=== PATIENT | female | born 1965 | race Caucasian/White ===

== ENCOUNTER 2016-12-06 16:34 | Observation (INO) | payer OTHER ==
[2016-12-06 17:14] LABS: BILIRUBIN,URINE NEGATIVE (NEGATIVE)
[2016-12-06 17:19] LABS: UA w/ MICROSCOPIC CHARGE YES
[2016-12-06] MEDS ORDERED: ONDANSETRON 4 MG/2 ML VIAL IVP STA (17:33)
[2016-12-06] MEDS ORDERED: HYDROmorphone 1 MG/ML SYRINGE IVP STA (17:33)
[2016-12-06] MEDS ORDERED: SODIUM CHLORIDE 0.9% 1,000 ML IV ONE (17:33)
[2016-12-06] MEDS ORDERED: HYDROmorphone 1 MG/ML SYRINGE ONE (17:35)
[2016-12-06] MEDS ORDERED: ONDANSETRON 4 MG/2 ML VIAL ONE (17:35)
[2016-12-06 17:36] LABS: BASOPHILS # (AUTO) 0.1 10^3/uL (0.0-0.1); BASOPHILS % (AUTO) 0.5 %; EOSINOPHILS % (AUTO) 0.2 %; HCT - HEMATOCRIT 37.7 % (37.0-47.0); HGB - HEMOGLOBIN 12.3 g/dL (12.0-16.0); LYMPHOCYTES # (AUTO) 1.7 10^3/uL (1.5-3.5); LYMPHOCYTES % (AUTO) 14.4 %; MEAN CORPUSCULAR HEMOGLOBIN 30.2 pg (27.0-31.0); MEAN CORPUSCULAR HGB CONC 32.6 g/dL (32.0-36.0); MEAN CORPUSCULAR VOLUME 92.6 fL (81.0-99.0); MEAN PLATELET VOLUME 10.1 fL (7.9-10.8); MONOCYTES # (AUTO) 0.6 10^3/uL (0.0-1.0); MONOCYTES % (AUTO) 5.5 %; NEUTROPHILS # (AUTO) 9.1 10^3/uL (1.5-6.6); NEUTROPHILS % (AUTO) 79.4 %; RED BLOOD COUNT 4.08 10^6/uL (4.20-5.40); RED CELL DISTRIBUTION WIDTH 12.7 % (12.0-15.0); UNCORRECTED WHITE BLOOD COUNT 11.5 x10^3/uL; WHITE BLOOD COUNT 11.5 x10^3/uL (4.8-10.8)
[2016-12-06 17:37] LABS: UR CULTURE IF IND NOT INDICATED; WBC,URINE 0-3 /HPF (0-5)
--- NOTE | 2016-12-06 17:41 | ED Physician Documentation ---
PD HPI ABD PAIN - Stated complaint Stated Complaint: ABD PX - Chief complaint Chief Complaint: Abd Pain - Additional information Additional information: 51-year-old female with past medical history of high cholesterol who is here with generalized abdominal pain for the last 3 days which got progressively worse today, is worse in the right lower quadrant, is associated with nausea but no vomiting. Pain is exacerbated by eating and not relieved by anything. It is also exacerbated by walking and certain movements. She denies diarrhea but has had some constipation. Pain is primarily a dull ache but occasionally becomes sharp in the right side. She denies dysuria and hematuria Review of Systems Ten Systems: 10 systems reviewed and negative Constitutional: denies: Fever, Chills Cardiac: denies: Chest pain / pressure Respiratory: denies: Dyspnea GI: reports: Abdominal Pain. denies: Nausea, Vomiting PD PAST MEDICAL HISTORY - Present Medications Home Medications: Ambulatory Orders Medication Instructions Recorded Confirmed Sertraline [Zoloft] 50 mg PO DAILY 12/06/16 12/06/16 - Allergies Allergies/Adverse Reactions: Allergies Allergy/AdvReac Type Severity Reaction Status Date / Time No Known Drug Allergies Allergy Verified 12/06/16 16:41 PD ED PE NORMAL - Vitals Vital signs reviewed: Yes - General General: Alert and oriented X 3, No acute distress - HEENT HEENT: PERRL - Neck Neck: Supple, no meningeal sign - Cardiac Cardiac: RRR, No murmur - Respiratory Respiratory: Clear bilaterally - Abdomen Abdomen: Normal bowel sounds, Soft, Non distended, Other (Right lower quadrant tenderness to palpation with rebound but no guarding) - Derm Derm: Warm and dry - Extremities Extremities: No deformity - Neuro Neuro: Alert and oriented X 3 - Psych Psych: Normal mood, Normal affect Results - Vitals Vitals: Vital Signs - 24 hr 12/06/16 12/06/16 12/06/16 16:37 18:21 20:10 Temperature 36.7 C 36.7 C Heart Rate 86 72 83 Respiratory 16 15 18 Rate Blood Pressure 119/74 115/57 L 115/56 L O2 Saturation 95 97 97 Oxygen O2 Source Room air - Labs Labs: Laboratory Tests 12/06/16 12/06/16 12/06/16 16:55 17:20 17:20 WBC 11.5 H RBC 4.08 L Hgb 12.3 Hct 37.7 MCV 92.6 MCH 30.2 MCHC 32.6 RDW 12.7 Plt Count 215 MPV 10.1 Neut # 9.1 H Lymph # 1.7 Haralson # 0.6 Eos # 0.0 Baso # 0.1 Absolute Nucleated RBC 0.00 Nucleated RBCs 0.0 Sodium 137 Potassium 3.7 Chloride 103 Carbon Dioxide 25 Anion Gap 9.0 BUN 15 Creatinine 0.8 Estimated GFR (MDRD) 75 L Glucose 97 Lactic Acid Calcium 8.7 Total Bilirubin 0.9 AST 16 ALT 14 Alkaline Phosphatase 47 Total Protein 6.7 Albumin 3.8 Globulin 2.9 Albumin/Globulin Ratio 1.3 Lipase 22 Urine Color YELLOW Urine Clarity CLEAR Urine pH 6.0 Ur Specific Cashion 1.010 Urine Protein NEGATIVE Urine Glucose (UA) NEGATIVE Urine Ketones 15 H Urine Occult Blood LARGE H Urine Nitrite NEGATIVE Urine Bilirubin NEGATIVE Urine Urobilinogen 0.2 (NORMAL) Ur Leukocyte Esterase NEGATIVE Urine RBC 0-5 Urine WBC 0-3 Ur Squamous Epith Cells FEW Squamous Urine Bacteria Rare Ur Microscopic Review INDICATED Urine Culture Comments NOT INDICATED 12/06/16 18:00 WBC RBC Hgb Hct MCV MCH MCHC RDW Plt Count MPV Neut # Lymph # Haralson # Eos # Baso # Absolute Nucleated RBC Nucleated RBCs Sodium Potassium Chloride Carbon Dioxide Anion Gap BUN Creatinine Estimated GFR (MDRD) Glucose Lactic Acid 0.6 Calcium Total Bilirubin AST ALT Alkaline Phosphatase Total Protein Albumin Globulin Albumin/Globulin Ratio Lipase Urine Color Urine Clarity Urine pH Ur Specific Cashion Urine Protein Urine Glucose (UA) Urine Ketones Urine Occult Blood Urine Nitrite Urine Bilirubin Urine Urobilinogen Ur Leukocyte Esterase Urine RBC Urine WBC Ur Squamous Epith Cells Urine Bacteria Ur Microscopic Review Urine Culture Comments - Rads (name of study) ct abd/pelvis with Radiology: EMP read contemporaneously, See rad report (IMPRESSION: 1. Acute appendicitis with irregularity at the tip of the appendix as well as likely adjacent extraluminal air consistent with early perforated appendicitis. Inflammation and trace free fluid without evidence of abscess. 2. Multiple liver lesions with a notable 3.3 cm somewhat amorphous hypodense area within the right lobe within segment 7. Differential diagnosis includes geographic focal fat, hemangioma or other infiltrative masses both benign or malignant. Considering its size, follow-up outpatient liver MRI suggested for further characterization. ) PD MEDICAL DECISION MAKING - ED course Complexity details: reviewed results, re-evaluated patient, considered differential, d/w patient, d/w health management consultant ED course: 51-year-old female no past medical history here with right lower quadrant pain. Differential diagnosis includes but is not limited to appendicitis versus urinary tract infection versus kidney stone versus pancreatitis. CBC is remarkable for leukocytosis. CMP is normal. CT abdomen and pelvis shows possibly perfect appendicitis. I discussed the case with surgeon Dr. Urena who is admitted the patient to the hospital for appendectomy tomorrow. Patient is aware and amenable to plan. This document was made in part using voice recognition software. While efforts are made to proofread this document, sound alike and grammatical errors may occur. Departure - Departure Disposition: ED Place in Observation Clinical Impression: Appendicitis Qualifiers: Appendicitis type: acute appendicitis Acute appendicitis type: with localized peritonitis Qualified Code(s): K35.3 - Acute appendicitis with localized peritonitis Condition: Fair
[2016-12-06 17:49] LABS: ALBUMIN/GLOBULIN RATIO 1.3 (1.0-2.2); BILIRUBIN,TOTAL 0.9 mg/dL (0.2-1.0); CALCIUM 8.7 mg/dL (8.5-10.3); CREATININE 0.8 mg/dL (0.4-1.0); POTASSIUM 3.7 mmol/L (3.5-5.0); TOTAL PROTEIN 6.7 g/dL (6.7-8.2)
[2016-12-06] MEDS ORDERED: IOPAMIDOL-300 100 ML VIAL IVP ONE (18:53)
--- NOTE | 2016-12-06 19:57 | CT Report ---
EXAM: CT ABDOMEN AND PELVIS EXAM DATE: 12/06/2016 06:58 PM. CLINICAL HISTORY: Right lower quadrant pain with rebound. COMPARISONS: None. TECHNIQUE: Routine helical CT imaging was performed through the abdomen and pelvis. IV contrast: 100 cc Isovue-300. Enteric contrast: No. Reconstructions: Coronal and sagittal. In accordance with CT protocol optimization, one or more of the following dose reduction techniques w ere utilized for this exam: automated exposure control, adjustment of mA and/or KV based on patient s ize, or use of iterative reconstructive technique. FINDINGS: Lung Bases: Unremarkable. Liver: Liver is normal in contour with multiple hypodense lesions within the liver. One of these lesi ons measures 11 mm in the right lobe of the liver and 20 Hounsfield units consistent with an hepatic cyst. Numerous other lesions are less than 1 cm and are technically indeterminate. However, there is a more amorphous geographic 3.3 cm hypodense area within the right lobe of the liver which is also in determinate. Gallbladder/Bile Ducts: Unremarkable. Spleen: Normal. Pancreas: Normal. Adrenal Glands: Normal. Kidneys: Symmetric renal enhancement without hydronephrosis. Hypodense subcentimeter lesion within th e left kidney which is too small for characterization. Peritoneal Cavity/Bowel: The stomach is decompressed and unremarkable. There are no dilated loops of large or small intestine with a large amount of stool within the colon. Within the right lower quadra nt inferior to the cecal tip there is prominent inflammation with a thickened appendix measuring 10 m m with irregular air at the tip of the appendix. The wall also appears indistinct at this level with some adjacent trace free fluid. No discrete abscess. Pelvic Organs: The bladder is unremarkable and the uterus is within normal limits. There is a left ov marcus cyst measuring 3.2 cm and right ovarian cyst measuring 2.3 cm. Trace free fluid is present with in the pelvic cul-de-sac. Vasculature: Mild atherosclerosis without abdominal aortic aneurysm. Bones: Old-appearing L2 compression fracture. Other: Fat-containing paraumbilical hernia. IMPRESSION: 1. Acute appendicitis with irregularity at the tip of the appendix as well as likely adjacent extralu stalin air consistent with early perforated appendicitis. Inflammation and trace free fluid without ev idence of abscess. 2. Multiple liver lesions with a notable 3.3 cm somewhat amorphous hypodense area within the right lo be within segment 7. Differential diagnosis includes geographic focal fat, hemangioma or other infilt rative masses both benign or malignant. Considering its size, follow-up outpatient liver MRI suggeste d for further characterization. [facility] Referring Provider Line: [phone] SITE ID: [id number]
[2016-12-06] MEDS ORDERED: AMPICILLIN/SULBACTAM 3 GM in SODIUM CHLORIDE 0.9% MINIBAG 100 ML IV STA (20:07)
[2016-12-06] MEDS ORDERED: SODIUM CHLORIDE FLUSH 0.9% 10 ML SYRINGE IVP PRN (21:01)
[2016-12-06] MEDS ORDERED: LORazepam 2 MG/ML SYRINGE IVP PRN (21:06)
[2016-12-06] MEDS ORDERED: AMPICILLIN/SULBACTAM 3 GM in SODIUM CHLORIDE 0.9% MINIBAG 100 ML IV SCH (22:00)
--- NOTE | 2016-12-06 22:31 | PROVIDER PROGRESS NOTE ---
Subjective - General Admit Date: 12/06/16 - Other Other Information/Narrative: see dictated H&P Objective - Patient Data Vital Signs: Vital Signs x48h Temp Pulse Resp BP Pulse Ox 12/06/16 21:50 37.3 C 83 16 99/55 L 97 - Lab Results Lab Results: 12/06/16 17:20 12/06/16 17:20 - Physical Exam Comments/Other: see dictated H&P Impression/Plan - Problem List Problem List: acute appendicitis Admit to [facility] NPO IV fluids IV Unasyn Laparoscopic appendectomy in AM see dictated H&P
[2016-12-06] MEDS: LACTATED RINGERS 1,000 ML IV SCH (22:51)
[2016-12-06] MEDS: SODIUM CHLORIDE FLUSH 0.9% 10 ML SYRINGE IVP SCH (22:51)
[2016-12-07] MEDS: ONDANSETRON 4 MG/2 ML VIAL IVP PRN ×2 (01:04→05:41)
[2016-12-07] MEDS ORDERED: AMPICILLIN/SULBACTAM 3 GM in SODIUM CHLORIDE 0.9% MINIBAG 100 ML IV SCH (02:00)
[2016-12-07] MEDS: SODIUM CHLORIDE FLUSH 0.9% 10 ML SYRINGE IVP SCH ×3 (05:07→21:55)
[2016-12-07] MEDS: LACTATED RINGERS 1,000 ML IV SCH (05:43)
[2016-12-07] MEDS: HYDROmorphone 1 MG/ML SYRINGE IVP PRN ×4 (06:40→15:55)
[2016-12-07] MEDS ORDERED: LACTATED RINGERS 1,000 ML IV ONE ×2 (09:20→10:08)
[2016-12-07] MEDS ORDERED: ONDANSETRON 4 MG/2 ML VIAL IVP ONE (09:45)
[2016-12-07] MEDS ORDERED: ePHEDrine 50 MG/ML VIAL IVP ONE (09:45)
[2016-12-07] MEDS ORDERED: SUCCINYLCHOLINE 200 MG/10 ML VIAL IVP ONE (09:45)
[2016-12-07] MEDS ORDERED: DEXAMETHASONE 4 MG/ML VIAL IVP ONE (09:45)
[2016-12-07] MEDS ORDERED: NEOSTIGMINE 1 MG/1 ML 10 ML MDV IVP ONE (09:45)
[2016-12-07] MEDS ORDERED: LIDOCAINE-PF 2% 10 ML AMP SUBQ ONE (09:45)
[2016-12-07] MEDS ORDERED: PROPOFOL 200 MG/20 ML VIAL IVP ONE (09:45)
[2016-12-07] MEDS ORDERED: GLYCOPYRROLATE 1 MG/5 ML VIAL IVP ONE (09:45)
[2016-12-07] MEDS ORDERED: fentaNYL 100 MCG/2 ML VIAL IVP ONE (09:45)
[2016-12-07] MEDS ORDERED: ROCURONIUM 50 MG/5 ML VIAL IVP ONE (09:45)
[2016-12-07] MEDS ORDERED: ACETAMINOPHEN 1,000 MG/100 ML VIAL IV ONE (09:45)
[2016-12-07] MEDS ORDERED: MIDAZOLAM 2 MG/2 ML VIAL IVP ONE (09:45)
[2016-12-07] MEDS ORDERED: KETOROLAC 30 MG/ML VIAL IVP ONE (09:45)
[2016-12-07] MEDS ORDERED: BUPIVACAINE 0.5% PF 30 ML VIAL SUBQ ONE ×2 (10:08)
[2016-12-07] MEDS ORDERED: LIDOCAINE 1%-EPI 1:100000 20 ML MDV SUBQ ONE ×2 (10:09)
--- NOTE | 2016-12-07 12:00 | PROVIDER PROGRESS NOTE ---
Surgery Post-Op - General Admit Date: 12/06/16 Procedure Date: 12/07/16 Pre-Op Diagnosis: acute appendicitis Operative Procedure: laparoscopic appendectomy Post-Op Diagnosis: perforated appendicitis - Procedure Note Anesthesia Technique: Primary Surgeon: Romel Pathology: appendix Estimated Blood Loss (in cc): 25 Complications: none - Other Other Information/Narrative: perforation and necrosis of the distal portion of the appendix which was covered by mesenteric fat and localized, irrigated with 2000ml saline, no drain placed return to [facility], advance diet, two more doses of IV Unasyn and then start po Augmentin which the patient will be discharged on The patient cannot be discharged until she is taking liquids well and able to tolerate the oral antibiotic JOB ID# [id number] Impression/Plan - Condition Condition: Fair
[2016-12-07] MEDS ORDERED: fentaNYL 100 MCG/2 ML VIAL ONE (12:05)
[2016-12-07] MEDS ORDERED: LORazepam 2 MG/ML SYRINGE IVP PRN (12:17)
[2016-12-07] MEDS ORDERED: PROMETHAZINE 25 MG SUPP PR PRN (12:17)
[2016-12-07] MEDS ORDERED: SODIUM CHLORIDE FLUSH 0.9% 10 ML SYRINGE IVP PRN (12:17)
[2016-12-07] MEDS ORDERED: BENZOCAINE SPRAY MM PRN (12:17)
[2016-12-07] MEDS ORDERED: ACETAMINOPHEN 1,000 MG/100 ML 100 ML IV PRN (12:17)
[2016-12-07] MEDS ORDERED: KETOROLAC 30 MG/ML VIAL IVP PRN (12:17)
[2016-12-07] MEDS ORDERED: PROCHLORPERAZINE 10 MG/2 ML VIAL IVP PRN (12:17)
[2016-12-07] MEDS: D5.45NS W/20 MEQ KCL 1,000 ML IV SCH (13:34)
[2016-12-07] MEDS: AMPICILLIN/SULBACTAM 3 GM in SODIUM CHLORIDE 0.9% MINIBAG 100 ML IV SCH ×2 (15:51→21:54)
[2016-12-07] MEDS: oxyCOD/ACETAMIN 5 MG/325 MG TABLET PO PRN ×2 (17:47→21:53)
--- NOTE | 2016-12-07 18:20 | PROVIDER PROGRESS NOTE ---
Subjective - General Admit Date: 12/06/16 Procedure Date: 12/07/16 Post Op Days: 0 Procedure Performed: laparoscopic appendectomy - Review of Systems Wound/Incisions: positive: Dressing dry and intact, No drainage. negative: Erythema Gastrointestinal: positive: Nausea, Vomiting, Abdominal pain (appropriate for post op) Genitourinary: positive: Other (carrasco catheter from the surgery was still in place and will be removed now) Objective - Patient Data Vital Signs: Vital Signs x48h Temp Pulse Resp BP Pulse Ox 12/07/16 16:47 36.8 C 71 16 94/69 93 12/07/16 14:13 36.5 C 69 12 103/67 92 12/07/16 13:30 36.5 C 71 12 101/66 94 12/07/16 13:05 36.7 C 72 14 99/63 95 12/07/16 12:50 97 12/07/16 12:45 96 12/07/16 12:30 95 12/07/16 12:15 96 12/07/16 12:10 95 12/07/16 12:05 96 12/07/16 12:00 96 12/07/16 11:56 100 Weight: Weight 12/05/16 12/06/16 12/07/16 23:59 23:59 23:59 Weight (kg) 99 kg Intake & Output: Intake and Output Totals x24h 12/05/16 12/06/16 12/07/16 23:59 23:59 23:59 Intake Total 948 Output Total 15 Balance 933 - Lab Results Lab Results: 12/06/16 17:20 12/06/16 17:20 - Current Medications Current Medications: Current Medications Generic Name Dose Route Start Last Admin Trade Name Freq PRN Reason Stop Dose Admin Hydromorphone HCl 0.5 mg 12/07/16 12:17 12/07/16 15:55 Dilaudid Inj IVP 0.5 mg Q2HR PRN Administration PAIN Potassium Chloride/Dextrose/Sod Cl 1,000 mls @ 100 mls/hr 12/07/16 13:00 13:34 D5.45ns W/20 Meq Kcl IV 100 mls/hr .Q10H BETITO Administration Ampicillin Sodium/Sulbactam 100 mls @ 200 mls/hr 12/07/16 14:00 12/07/16 15:51 Sodium 3 gm/ Sodium Chloride IV 12/07/16 20:29 200 mls/hr Q6H BETITO Administration Ketorolac Tromethamine 30 mg 12/07/16 12:17 12/07/16 13:35 Toradol Inj IVP 12/12/16 12:16 30 mg Q6H PRN Administration PAIN Oxycodone/Acetaminophen 2 tab 12/07/16 12:17 12/07/16 17:47 Percocet 5 Mg/325 Mg PO 2 tab Q4HR PRN Administration PAIN Prochlorperazine Edisylate 10 mg 12/07/16 12:17 12/07/16 17:53 Compazine Inj IVP 10 mg Q4HR PRN Administration Nausea / Vomiting Sodium Chloride 10 ml 12/07/16 14:00 12/07/16 13:35 Normal Saline Flush 0.9% IVP 10 ml Q8HR BETITO Administration - Physical Exam Wound/Incisions: positive: Dressing dry and intact, No drainage. negative: Drainage, Erythema General Appearance: positive: No acute distress, Alert Abdomen: positive: Other (dressing dry and intact with no drainage and appropriate tenderness) Comments/Other: carrasco catheter was still in place Impression/Plan - Problem List Problem List: remove the carrasco Get the patient out of bed use the incentive spirometer stop the IV Unasyn after the next dose and start po Augmentin Will plan for discharge in the morning if the patient is no longer nauseated and is taking po and able to urinate
--- NOTE | 2016-12-07 18:30 | Discharge Plan ---
Discharge Plan Disposition: 01 Home, Self Care Condition: Stable Prescriptions: oxyCODONE/ACET 5/325 [Percocet 5 mg/325 mg] 2 tab PO Q4HR PRN #30 tablet PRN Reason: Pain Amox/Clav 875/125 [Augmentin 875/125] 1 tab PO BID #20 tablet Diet: Regular Activity Restrictions: no lifting >20 pounds 2wk Shower Restrictions: No (do not face the water) Driving Restrictions: Yes (no driving while taking narcotics) Weight Bearing: Full Weight Additional Instructions or Follow Up instructions: no driving while taking narcotics no driving until pain is well controlled will likely feel like returning to work in 3 to 5 days but there will still be some pain you may shower now but do not directly face the water and let it run on the incisions do not submerge the incisions for 14 days you can remove the clear cover and gauze tomorrow but leave the skin glue in place and do not pick at it if you notice redness or red streaks around the incisions, return to the hospital if you have severe pain not controlled with your pain medication, return to the hospital if you have drainage from the incisions you can put a dressing on it but if it is a lot or it is thick or foul smelling, come to the hospital if the pain medication prescribed for you is causing you to feel nauseated or causing constipation, you can use tylenol or motrin instead No lifting greater than 20 pounds for two weeks after the surgery No lifting greater than 40 pounds for four weeks after the surgery Do not do abdominal exercises for four weeks after the surgery You can and should walk as much as you want No Smoking: If you smoke, Please STOP! Call for help. Follow-up with: Remigio Urena MD [Provider Admit Priv/Credential] -
--- NOTE | 2016-12-07 20:31 | OPERATIVE REPORT ---
DATE OF SURGERY: 12/07/2016 00:00:00 PREOPERATIVE DIAGNOSIS: Perforated appendicitis. POSTOPERATIVE DIAGNOSIS: Perforated appendicitis. SURGEON: Remigio Urena MD INDICATION: This is a 51-year-old female who presented with perforated appendicitis as evidenced on C T scan. PROCEDURE: Laparoscopic appendectomy. SURGEON: Remigio Urena MD REAL ESTATE DEVELOPMENT MANAGER: None. ANESTHESIA: General endotracheal anesthesia (Scotty Whitmarsh). ANTIBIOTIC: The patient is on scheduled Unasyn. FLUIDS: 1400 mL of crystalloid. ESTIMATED BLOOD LOSS: 25 mL. URINE OUTPUT: 100 mL. SPECIMEN: Appendix. DRAINS: None. FINDINGS: The patient had a localized perforation that was covered by mesenteric fat with a clear are a of necrosis of the distal appendix and a viable appendix at its base near the cecum. COMPLICATIONS: None. DESCRIPTION OF PROCEDURE: After the patient had been correctly identified and informed consent had be en obtained and the patient had been given the opportunity to ask questions and understand the answer s, she was taken to the operating room on a hospital bed and transferred to the OR table. General end otracheal anesthesia was induced. It was ensured that all pressure points were adequately padded. A F oley catheter was placed for the procedure and was removed at the end of the case. The abdomen was pr epped and draped in a normal sterile fashion. A final timeout was performed to ensure that this was t he correct patient and the correct procedure. A supraumbilical incision was made after injecting loca l anesthetic and blunt dissection was used to dissect down to an umbilical hernia defect that the pat ient was known to have. The Marquis trocar was easily placed through the defect. The abdomen was insuf flated to 15 mmHg and the patient tolerated this well. There was a 5 mm port site placed in the supra pubic region under direct visualization, and another 5 mm port site placed in the left lower quadrant under direct visualization. The patient was positioned in slight Trendelenburg and airplaned with th e left side down. An area of inflammation at the distal end of the colon was easily identified. This was very adherent and required a significant amount of blunt dissection, sharp dissection and electro cautery to begin to develop the planes. The base of the appendix was easily seen at the base of the c ecum, but the appendix distal to that was very difficult to see, as it was covered with mesenteric fa t. This was very carefully dissected free and had to be transected and removed in order to be able to visualize the rest of the appendix. The distal 2-3 cm of the appendix was clearly necrotic and perfo rated, but we were able to get all of that out. Once the base of the appendix was clearly isolated, a n endostapling device with a HARVEY load in it was placed across the base of the appendix. It was ensure d that nothing else was within the stapler and it was fired. The rest of the appendix was carefully d issected free and there was no evidence of an appendiceal artery or any viable mesoappendix. The spec imen was placed in an EndoCatch bag and removed from the supraumbilical incision. The site was inspec fredi and the staple line was intact. There was no evidence of any bleeding. The abdomen was irrigated, and the area was irrigated with 2000 mL of saline and it was suctioned out. There was no evidence of any bleeding and the fluid being suctioned was clear. I therefore felt that it was not indicated to place a drain. I checked in the cul-de-sac and saw no evidence of retained fluid there and suctioned all the fluid from over the right side of the liver. The supraumbilical port site was removed and a T hompson needle passer was used to place several interrupted 0 Ethibond sutures approximating the fasc ial defect. The skin incisions were approximated using 4-0 Monocryl subcuticular sutures, followed by Dermabond. Dressings were placed over this. The patient was extubated, the Beard was removed, and th e patient was moved to a hospital bed and taken to recovery room in stable condition. There were no c omplications. The plan will be for the patient to receive 2 more doses of IV antibiotics and be switc hed over to oral Augmentin for a full 10-day course. She will be ready to be discharged when she is a ble to take p.o. well and has received both of those doses of IV antibiotics. JOB #: [id number] EXT JOB #:[id number]
[2016-12-07] MEDS ORDERED: SODIUM CHLORIDE 0.9% 100ML 100 ML IV ONE (21:51)
[2016-12-07] MEDS: FAMOTIDINE 20 MG TABLET PO SCH (21:52)
[2016-12-08] MEDS: D5.45NS W/20 MEQ KCL 1,000 ML IV SCH (00:21)
[2016-12-08] MEDS: oxyCOD/ACETAMIN 5 MG/325 MG TABLET PO PRN ×2 (02:41→07:55)
[2016-12-08] MEDS: SODIUM CHLORIDE FLUSH 0.9% 10 ML SYRINGE IVP SCH (05:29)
[2016-12-08] MEDS ORDERED: AMOX/CLAV 875 MG/125 MG TABLET PO SCH (09:00)
[2016-12-08] MEDS ORDERED: ENOXAPARIN 40 MG/0.4 ML SYRINGE SUBQ SCH (09:00)
[2016-12-08] MEDS ORDERED: SERTRALINE 50 MG TABLET PO SCH (09:00)
[2016-12-08 09:01] VITALS: BP 100/64
--- NOTE | 2016-12-08 09:06 | PROVIDER PROGRESS NOTE ---
Subjective - General Admit Date: 12/06/16 Procedure Date: 12/07/16 Post Op Days: 1 Procedure Performed: laparoscopic appendectomy - Review of Systems Wound/Incisions: positive: Dressing dry and intact, No drainage. negative: Drainage, Erythema General: positive: No symptoms, Other (took her diet well this AM) HEENT: positive: Headaches (has a history of migraine headaches) Pulmonary: positive: No symptoms Cardiovascular: positive: No symptoms Gastrointestinal: positive: No symptoms, Vomiting, Abdominal pain (appropriate for post op) Genitourinary: positive: No symptoms, Other (urinating well after carrasco removed) Musculoskeletal: positive: No symptoms Psychiatric: positive: No symptoms Objective - Patient Data Vital Signs: Vital Signs x48h Temp Pulse Resp BP Pulse Ox 12/08/16 08:59 37.1 C 82 18 100/64 95 12/08/16 06:24 36.6 C 76 18 99/62 94 12/08/16 02:00 36.9 C 78 16 91/52 L 94 Weight: Weight 12/06/16 12/07/16 12/08/16 23:59 23:59 23:59 Weight (kg) 99 kg Intake & Output: Intake and Output Totals x24h 12/06/16 12/07/16 12/08/16 23:59 23:59 23:59 Intake Total 1424 1736 Output Total 690 Balance 734 1736 - Lab Results Lab Results: 12/06/16 17:20 12/06/16 17:20 - Current Medications Current Medications: Current Medications Generic Name Dose Route Start Last Admin Trade Name Freq PRN Reason Stop Dose Admin Famotidine 20 mg 12/07/16 21:00 12/07/16 21:52 Pepcid PO 20 mg BID BETITO Administration Hydromorphone HCl 0.5 mg 12/07/16 12:17 12/07/16 15:55 Dilaudid Inj IVP 0.5 mg Q2HR PRN Administration PAIN Potassium Chloride/Dextrose/Sod Cl 1,000 mls @ 100 mls/hr 12/07/16 13:00 00:21 D5.45ns W/20 Meq Kcl IV 100 mls/hr .Q10H BETITO Administration Ketorolac Tromethamine 30 mg 12/07/16 12:17 12/07/16 13:35 Toradol Inj IVP 12/12/16 12:16 30 mg Q6H PRN Administration PAIN Oxycodone/Acetaminophen 2 tab 12/07/16 12:17 12/08/16 07:55 Percocet 5 Mg/325 Mg PO 2 tab Q4HR PRN Administration PAIN Prochlorperazine Edisylate 10 mg 12/07/16 12:17 12/07/16 17:53 Compazine Inj IVP 10 mg Q4HR PRN Administration Nausea / Vomiting Sodium Chloride 10 ml 12/07/16 14:00 12/08/16 05:29 Normal Saline Flush 0.9% IVP Not Given Q8HR BETITO - Physical Exam Wound/Incisions: positive: Dressing dry and intact, No drainage. negative: Drainage, Erythema General Appearance: positive: No acute distress, Alert Eyes Bilateral: positive: Normal inspection ENT: positive: ENT inspection nml Neck: positive: Nml inspection Respiratory: positive: Breath sounds nml Cardiovascular: positive: Regular rate & rhythm Abdomen: positive: Other (appropriate post operative tenderness with dressings clean/dry/intact active Bowel sounds) Extremities: positive: Non-tender, No pedal edema Neurologic/Psychiatric: positive: Oriented x3, CN's nml (2-12) Impression/Plan - Problem List Problem List: appendicitis status post appendectomy discharge to home today continue oral antibiotics (Augmentin) for 10 day course as the appendix was perforated and necrotic given Rx for Percocet 30 tab
[2016-12-08] MEDS: FAMOTIDINE 20 MG TABLET PO SCH (10:09)
--- NOTE | 2016-12-08 13:01 | HISTORY & PHYSICAL EXAMINATION ---
DATE OF ADMISSION: 12/06/2016 CHIEF COMPLAINT: Right lower quadrant pain. HISTORY OF PRESENT ILLNESS: This is a 51-year-old female who states that while she was at work approximately 48 hours ago, she developed right lower quadrant and right lower abdominal pain which is rather severe and kept her from being able to go for her daily 7-9 mile walk, but she felt much better the next day and was able to go to work, but then the pain returned later in the evening of that day and then throughout the day today. She was experiencing nausea but no emesis. She states that she had some subjective fevers but no chills. She denies any diarrhea and states that the last time she moved her bowels was greater than 48 hours ago which she states is normal for her. She denies any difficulty with urination or changes to her urinary habits. ALLERGIES: NONE. PAST MEDICAL HISTORY: 1. Depression. 2. Elevated cholesterol. 3. Infertility. MEDICATIONS: Zoloft. PAST SURGICAL HISTORY: Laparoscopic diagnostic procedure for fertility. FAMILY MEDICAL HISTORY: 1. Mother is from hepatitis C. 2. Father is still alive and has no history of any kind of cancer. 3. Patient has one sister who is morbidly obese, but otherwise healthy. 4. Patient has no children. SOCIAL HISTORY: Tobacco - The patient has approximately 25 year smoking history , but she did quit smoking 4 years ago. She states that she socially drinks alcohol and she denies any drug use. REVIEW OF SYSTEMS: GENERAL: The patient does state that she feels tired and she has the abdominal pain, but otherwise feels normal. HEENT: The patient denies any issues. LUNGS: Patient denies any history of asthma or shortness of breath. CARDIOVASCULAR: Patient denies any history of murmurs or any cardiovascular disease. ABDOMEN: As per the HPI. GENITOURINARY: Patient states she is not having any difficulty with urination. MUSCULOSKELETAL: Patient denies any issues with walking or weakness. NEUROLOGIC: Patient states she has no issues with any neurologic deficits. PSYCHIATRIC: The patient has a known history of depression and she takes her Zoloft and says she is doing well. PHYSICAL EXAMINATION GENERAL: This is a well-developed, well-nourished, slightly obese female in no apparent distress, laughing on my entering the room. HEENT: The head is normocephalic and atraumatic. The eyes have nonicteric sclerae. The nares are patent and the throat is clear with no dentures. NECK: There are no bruits and no masses. LUNGS: Clear to auscultation bilaterally with no wheezes, rales or rhonchi. CARDIOVASCULAR: There is a regular rate and rhythm with no murmurs, rubs or gallops. ABDOMEN: The abdomen is slightly obese. There is an obvious umbilical hernia which is easily reduced. The abdominal exam is soft. There is no guarding, but the patient definitely has rebound tenderness in the right lower quadrant and she had very hypoactive bowel sounds. There are no palpable masses. MUSCULOSKELETAL: The patient has good range of motion of her extremities. EXTREMITIES: No edema. No clubbing or cyanosis. NEUROLOGIC: Cranial nerves 2-12 are grossly intact. PSYCHIATRIC: The patient is alert and oriented to person, place, time, and situation. LABORATORIES: White blood cell count is 11.5 with a left shift. The hemoglobin is 12.3 and the platelet count is 215,000. The chemistries are all within normal limits with a glucose of 97 and a lactic acid of 0.6. Patient's urinalysis does demonstrate ketones in the urine and a large amount of occult blood which could easily be explained by the amount of inflammation she has in her pelvis. IMAGING: CT scan preliminary report per the radiologist and my review in the emergency department demonstrates acute appendicitis and some extraluminal air consistent with a perforation. The patient also has multiple liver lesions of the right lobe of the liver and the patient should have followup for this after her surgical procedure for her appendicitis and her recovery. ASSESSMENT: Acute appendicitis with perforation. RECOMMENDATIONS: The patient will be admitted to the hospital, placed on IV fluids, made NPO, started on IV antibiotics (Unasyn) 3 grams IV q.6 hours, and the plan will be to do a laparoscopic appendectomy tomorrow versus laparoscopic drain placement dependent on what is found in the operating room. JOB #: [id number] EXT JOB #:[id number] LOBITO
== END 2016-12-08 10:15 | disposition home or self-care (01) ==
LOC: ED 16:34 → MS 21:01
PROC: 0DTJ4ZZ Resection of Appendix, Percutaneous Endoscopic Approach (ICD-10-PCS; principal; 2016-12-07 09:00)
DX: K35.2 Acute appendicitis with generalized peritonitis (principal); F32.9 Major depressive disorder, single episode, unspecified; E78.00 Pure hypercholesterolemia, unspecified; E66.9 Obesity, unspecified; Z68.32 Body mass index [BMI] 32.0-32.9, adult; K76.9 Liver disease, unspecified; M19.90 Unspecified osteoarthritis, unspecified site; Z87.891 Personal history of nicotine dependence; Z79.899 Other long term (current) drug therapy
CPT/HCPCS: 36415; 44970; 74177; 80053; 81001; 83605; 83690; 85025; 88304; 96361; 96365; 96375; 96376; 99284; A9270; G0378; J0131; J1170; J7120; Q9967; 81003; 87086; 96374

== ENCOUNTER 2016-12-28 10:33 | Outpatient (CLI) | payer OTHER ==
[2016-12-28] MEDS ORDERED: GADOBUTROL 10 MMOL/10 ML VIAL IVP ONE (11:56)
== END 2016-12-28 10:34 | disposition home or self-care (01) ==
DX: R16.0 Hepatomegaly, not elsewhere classified (principal); K76.89 Other specified diseases of liver
CPT/HCPCS: 74183; A9585